=== PATIENT | female | born 2000 | race Caucasian/White ===

== ENCOUNTER 2021-04-28 23:06 | Emergency (ER) | payer BC, SELFPAY ==
--- NOTE | ~2021-04-28 | XR_ITS ---
EXAMINATION: XR lumbar spine 2-3V DATE: 04/29/2021 03:35 INDICATION: Left-sided mid to lower back pain TECHNIQUE: Anteroposterior and lateral views of the lumbar spine, and cone-down lateral view of the l umbosacral junction were obtained. COMPARISON: None. FINDINGS: Alignment is normal. Vertebral body heights are normal. Mild disc height loss at multiple levels in t he visualized lower thoracic spine. Sacrum and bilateral sacroiliac joints are normal. Visualized jose luis g bases are clear. IMPRESSION: 1. Multilevel mild disc height loss and lower thoracic spine. No evident acute osseous abnormality. Reviewed, dictated and finalized at location A.
[2021-04-28 23:18] VITALS: BP 149/96; PULSE 98; RESP 16; TEMP 37.1; O2SAT 99
--- NOTE | 2021-04-29 03:04 | ED.BACK ---
HPI - Back Pain/Injury General Chief Complaint: Back Pain/Injury Stated Complaint: lower back pain Time Seen by Provider: 04/29/21 03:02 Source: patient Mode of arrival: ambulatory Limitations: no limitations History of Present Illness HPI Narrative: Patient is a 20-year-old female with a history of intermittent, chronic lower back pain who presents for evaluation of back pain. Patient states that she believes she was lifting some heavy objects earlier in the week, and she developed increased back pain from her normal. Patient states that the pain was so severe this evening she had occultly standing up straight. She denies fever, chills, nausea, vomiting or abdominal pain. No weakness or numbness in the lower extremities. Pain is actually quite minimal to nearly resolved at the time of my assessment. No saddle anesthesia, difficulty with urination, incontinence or difficulty with bowel function. Patient did not take any medication to help with the pain. She denies recent fall or injury. In the past, patient symptoms are usually exacerbated by heavy lifting or working out at the gym. Patient denies any IV drug use. Related Data Allergies Allergy/AdvReac Type Severity Reaction Status Date / Time No Known Allergies Allergy Verified 04/29/21 02:43 Review of Systems Review of Systems: CONSTITUTIONAL: Denies fever CARDIOVASCULAR: Denies chest pain RESPIRATORY: Denies cough or dyspnea. GASTROINTESTINAL: Denies abdominal pain SKIN: Denies rash MUSCULOSKELETAL: Reports lower back pain NEUROLOGIC: Denies headache [facility] Social History Social History (Updated 04/29/21 @ 03:20 by Ainta Goetz MD) Smoking status: Never smoker Alcohol intake: never Substance use: never Living arrangements: with friend(s) Occupation/Education: student Gender identity (if verbalized by the patient): Female Exam Narrative: GENERAL: Awake, alert, conversant HEAD: Normocephalic, atraumatic. EYES: PERRLA and EOMI. ENT: Nares clear, no rhinorrhea or epistaxis. Mucous membranes moist. NECK: Supple. CHEST: No respiratory distress, breathing even and non labored HEART: Regular rate, sinus rhythm ABDOMEN:Non distended, non tender EXTREMITIES: Normal range of motion. No edema. No SI joint tenderness bilaterally. Thorax: No midline cervical, thoracic, or lumbar tenderness. Positive bilateral paraspinal lumbar tenderness. No step-offs or deformities. Patient with intact flexion at the lumbar spine as well as extension without limitation. SKIN: Warm, dry, no rash. NEURO:No focal deficits. Alert and oriented x3. Finger to nose intact bilaterally. EOMs intact without nystagmus. No facial droop/asymmetry noted bilaterally. Grimace intact. Intact sensation in face. Hearing intact bilaterally. Shoulder shrug intact. Strength 5/5 bilateral upper extremities. Strength 5/5 bilateral lower extremities. Reflexes 2+ patellar. Heel to estrella intact bilaterally. Ambulatory with a narrow base, steady gait, no ataxia. Course Vital Signs Vital signs: Vital Signs Temperature 37.1 C 04/28/21 23:18 Pulse Rate 98 04/28/21 23:18 Respiratory Rate 16 04/28/21 23:18 Blood Pressure 149/96 H 04/28/21 23:18 Pulse Oximetry 99 04/28/21 23:18 Temperature 37.1 C 04/28/21 23:18 Pulse Rate 98 04/28/21 23:18 Respiratory Rate 16 04/28/21 23:18 Blood Pressure 149/96 H 04/28/21 23:18 Pulse Oximetry 99 04/28/21 23:18 MDM - Back Pain/Injury MDM Narrative Medical decision making narrative: Given History and Exam the patient appears to be at low risk for Spinal Cord Compression Syndrome, Vertebral Malignancy/Mets, acute Spinal Fracture, Vertebral Osteomyelitis, Epidural Abscess, Infected or Obstructing Kidney Stone. Pt is ambulatory with normal range of motion, extension and no neurological deficits or weakness. Her presentation appears most likely to be secondary to non-emergent musculoskeletal etiology vs non-emergent disc herniation. Pain
[2021-04-29 03:09] LABS: Add Urine Microscopic? YES; Appearance Urine Clear (Clear); Bilirubin Urine Negative (Negative); Blood Urine Negative (Negative); Color Urine Straw (Yellow); Glucose Urine UA Negative (Negative); Ketones Urine Negative (Negative); Leukocyte Esterase Ur 1+ LEU/UL (Negative); Nitrate Urine Negative (Negative); Protein Urine Negative (Negative); RBC Urine 0-2 /hpf (0-2); Specific Grav Ur 1.011 (1.001-1.035); Squamous Epithelial Cell Urine Few /hpf (Few); Urobilinogen Urine Negative mg/dL (<2.0); WBC Urine 0-3 /hpf
[2021-04-29 04:00] VITALS: BP 124/94; PULSE 70; RESP 18; O2SAT 100
== END 2021-04-29 04:00 | disposition home or self-care (01) ==
PROVIDERS: Emergency Provider Emergency Medicine
DX: S39.012A Strain of muscle, fascia and tendon of lower back, initial encounter (principal); X58.XXXA Exposure to other specified factors, initial encounter
CPT/HCPCS: 72100; 81001; 99283

== ENCOUNTER 2021-09-21 19:40 | Emergency (ER) | payer BC, SELFPAY ==
[2021-09-21 19:42] VITALS: BP 146/75; PULSE 90; RESP 18; TEMP 36.8; O2SAT 100
--- NOTE | 2021-09-21 19:50 | PC.NURSE ---
Ex , Beny, left phone number to be contacted when pt goes back to a room. [phone].
[2021-09-21 19:51] VITALS: BP 140/70; PULSE 80; RESP 20; O2SAT 100
--- NOTE | 2021-09-21 21:12 | ED.EXTPRO ---
HPI - Extremity Problem General Chief complaint: Extremity Problem,Nontraumatic Stated complaint: R leg pain, no swelling/redness Time Seen by Provider: 09/21/21 20:51 Source: patient History of Present Illness HPI Narrative: 21-year-old female presenting to the emergency department for evaluation of right leg pain that she feels radiates from her knee to her thigh. Patient was seen at a [facility] approximately 2 weeks ago for this pain and had been diagnosed with sciatica patient has been taking medications for pain control without any significant improvement. Patient denies any chest pain or shortness of breath. Patient denies any lower extremity swelling or lower extremity tenderness. Patient denies any prior history of PE or DVT. Patient denies any specific injury. Related Data Allergies Allergy/AdvReac Type Severity Reaction Status Date / Time No Known Allergies Allergy Verified 09/21/21 19:48 Review of Systems Review of Systems: CONSTITUTIONAL: Denies fever, chills, or sweats. EYES: Denies visual changes, redness, or discharge. ENT: Denies rhinorrhea, congestion, sore throat, or otalgia. CARDIOVASCULAR: Denies chest pain, palpitations, or edema. RESPIRATORY: Denies cough or dyspnea. GASTROINTESTINAL: Denies abdominal pain, nausea, vomiting, or diarrhea. GENITOURINARY: Denies dysuria or hematuria. SKIN: Denies rash or itching. MUSCULOSKELETAL: Posterior knee pain rating up to mid thigh. All systems reviewed & are unremarkable except as noted in HPI and below PMFSH Social History Social History (Updated 04/29/21 @ 03:20 by Anita Goetz MD) Smoking status: Never smoker Alcohol intake: never Substance use: never Gender identity (if verbalized by the patient): Female Exam Narrative: APPEARANCE: Well appearing, no pain, no distress, well-nourished. HEAD: normocephalic, atraumatic. RESPIRATORY: Airway patent, respirations nonlabored. Clear to auscultation bilaterally, no rales, rhonchi, wheezing. CARDIOVASCULAR: Regular rate and rhythm without murmurs rubs or gallops. ABDOMINAL: Soft, nontender, nondistended, normal bowel sounds MUSCULOSKELETAL: Moves all extremities. No right calf edema or tenderness to palpation. Some mild right posterior knee tenderness to palpation. SKIN: Warm, dry. Normal Color. No right lower extremity erythema or edema PSYCHIATRIC: Normal affect/mood. Course Course Emergency Course: Ultrasound is not available at this time of the night. Low concern for DVT but did not feel that the patient needs anticoagulation in the emergency department. Ultrasound was ordered for the morning and patient states she can return at 7 AM for the ultrasound. All question concerns were addressed. Patient was comfortable with the plan for discharge and return for ultrasound. Patient was stable at time of discharge Vital Signs Vital signs: Vital Signs Temperature 98.2 F 09/21/21 19:42 Pulse Rate 90 09/21/21 19:42 Respiratory Rate 18 09/21/21 19:42 Blood Pressure 146/75 H 09/21/21 19:42 Pulse Oximetry 100 09/21/21 19:42 Temperature 98.2 F 09/21/21 19:42 Pulse Rate 80 09/21/21 19:51 Respiratory Rate 20 09/21/21 19:51 Blood Pressure 140/70 09/21/21 19:51 Pulse Oximetry 100 09/21/21 19:51 Discharge Plan Discharge Clinical Impression: Acute pain of right lower extremity Patient Disposition: Home, Self-Care Condition: Stable Instructions: Antibiotic Form, Sciatica (ED), Prakash Cyst (ED) Additional Instructions: You have an ultrasound scheduled for 7 AM. Continue taking Tylenol or ibuprofen for pain control. Have close follow-up with your primary care physician. If you have any worsening symptoms or if you have any questions or concerns then please call or return to the emergency department Prescriptions: No Action lidocaine 4 % adhesive patch,medicated 1 patch TOPICAL Q24H PRN (Reason: pain) 10 Days Qty: 10 RF: 0 ibuprofen 400 mg tablet
== END 2021-09-21 21:36 | disposition home or self-care (01) ==
PROVIDERS: Emergency Provider Emergency Medicine
DX: M79.651 Pain in right thigh (principal)
CPT/HCPCS: 99281

== ENCOUNTER 2021-09-22 07:17 | Outpatient (CLI) | payer BC, SELFPAY ==
--- NOTE | ~2021-09-22 | US_ITS ---
EXAMINATION: US venous doppler LE RT DATE: 09/22/2021 07:59 INDICATION: Onset right lower limb pain TECHNIQUE: Grayscale ultrasound images without and with compression and Doppler ultrasound images of the right lower extremity veins were obtained. COMPARISON: None. FINDINGS: The visualized portions of right common femoral vein, profunda (deep) femoral vein, femoral vein, pop liteal vein, peroneal trunk, posterior tibial veins, peroneal veins, gastrocnemius vein and greater s aphenous vein outflow are patent. IMPRESSION: 1. No deep venous thrombosis in the right lower limb. Reviewed, dictated and finalized at location A. PLATER
== END 2021-09-22 07:18 | disposition home or self-care (01) ==
PROVIDERS: PCP Internal Medicine; Visit Provider Emergency Medicine
DX: M79.661 Pain in right lower leg (principal)
CPT/HCPCS: 93971